=== PATIENT | male | born 1950 | race American Indian/Alaskan Native ===

== ENCOUNTER 2021-04-12 07:04 | Inpatient (IN) | payer MEDICARE ==
[2021-04-12] MEDS ORDERED: EPINEPHrine 1 MG/10 ML SYRINGE IV ONE (07:05)
[2021-04-12] MEDS ORDERED: DOPamine/D5W 800 MG/250 ML 0 MG/0 ML BAG IV ONE (07:11)
[2021-04-12] MEDS ORDERED: NORepinephrine/NS 4 MG-250 ML 4 MG/250 ML BAG IV ONE ×2 (07:28→17:07)
[2021-04-12] MEDS: NORepinephrine/NS 4 MG-250 ML 4 MG/250 ML BAG IV SCH ×2 (07:40→10:23)
[2021-04-12] MEDS ORDERED: DOPamine/D5W 800 MG/250 ML 800 MG/250 ML BAG IV ONE (07:56)
[2021-04-12] MEDS ORDERED: SODIUM CHLORIDE 0.9% 1000 ML 1,000 ML IV ONE ×2 (07:57)
[2021-04-12] MEDS ORDERED: EPINEPHrine 1 MG/1 ML 8 MG in SODIUM CHLORIDE 0.9% 250ML 242 ML IV SCH (08:00)
--- NOTE | 2021-04-12 08:09 | Emergency Department Report ---
HPI - General Chief Complaint: Cardiac Arrest/CPR Time Seen by Provider: 04/12/21 07:47 - HPI HPI: Room 21 The patient is a 71-year-old male present with chief complaint of cardiac arrest. Per EMS the patient called 911 complaining of shortness of breath. EMS arrived on scene at approximately 06:28. They had to make a forced entry which delayed them approximately 9 minutes. EMS states they found the patient prone on his bed with his telephone next to him in asystole. ACLS protocols were initiated and the patient was intubated using a Allen airway by EMS. Patient received sodium bicarb, calcium chloride 4 rounds epinephrine prior to arrival. Upon arrival to the ED the patient was found in PEA. ACLS protocols were continued. The Allen airway was removed and the patient was intubated by myself using a 8.0 ET tube. There was eventual return of spontaneous circulation. Patient had several more brief arrests in the ED but there was eventual return of spontaneous circulation. ED Past Medical Hx - Past Medical History Previous Medical History?: No - Surgical History Past Surgical History?: No - Family History Family history: no significant - Social History Smoking Status: Unknown if ever smoked ED Review of Systems ROS: Stated complaint: CARDIAC ARREST Other details as noted in HPI Comment: Unobtainable due to pts medical conditions Physical Exam - Physical Exam Vital Signs: Vital Signs 04/12/21 07:27 Temperature 92.5 F L Pulse Rate 0 L Respiratory 0 L Rate Blood Pressure 0/0 O2 Sat by Pulse 0 L Oximetry Vital Signs 04/12/21 04/12/21 04/12/21 07:05 07:17 07:27 Temperature 92.5 F L Pulse Rate 71 0 L Respiratory 0 L 0 L Rate Blood Pressure 44/27 0/0 O2 Sat by Pulse 99 0 L Oximetry 04/12/21 04/12/21 04/12/21 07:30 07:45 08:00 Temperature Pulse Rate 108 H 89 79 Respiratory 12 17 22 Rate Blood Pressure 76/49 48/30 78/42 O2 Sat by Pulse 71 L Oximetry 04/12/21 04/12/21 04/12/21 08:02 08:15 08:31 Temperature Pulse Rate 93 H 112 H 98 H Respiratory 22 30 H Rate Blood Pressure 94/56 94/56 96/46 O2 Sat by Pulse 86 86 93 Oximetry 04/12/21 04/12/2121 08:45 09:01 09:15 Temperature Pulse Rate 112 H 113 H 111 H Respiratory 30 H 30 H 22 Rate Blood Pressure 87/43 95/47 84/58 O2 Sat by Pulse 95 97 Oximetry 04/12/21 09:17 Temperature 94.2 F L Pulse Rate Respiratory Rate Blood Pressure O2 Sat by Pulse Oximetry Physical Exam: GENERAL: The patient is well-developed well-nourished male lying on stretcher receiving chest compressions from EMS and being bagged via Allen airway. [] HEENT: Normocephalic. Atraumatic. NECK: Trachea midline CHEST/LUNGS: No respirations. Breath sounds equal bilaterally with bagging after intubation by myself with ET tube HEART/CARDIOVASCULAR: Initially no heart sounds with PEA on the monitor. ABDOMEN: Abdomen is soft, nontender. Patient has normal bowel sounds. There is no abdominal distention. SKIN: There is no rash. There is no edema. There is no diaphoresis. NEURO: GCS 3 T MUSCULOSKELETAL: There is no evidence of acute injury. ED Course Vital Signs 04/12/21 07:27 Temperature 92.5 F L Pulse Rate 0 L Respiratory 0 L Rate Blood Pressure 0/0 O2 Sat by Pulse 0 L Oximetry - Central Line Placement Right Femoral Consent Obtained: emergent situation Time Out Performed: No Patient Placed on Monitor/Pulse Ox: Yes Prep: mask, gown, gloves Central Line Prep: Chlorhexidine scrub Ultrasound Used for Placement: No (Femoral, easy landmarks) Central Line Lumen Inserted: triple Reason for Insertion: High Alert Medication Bloods Obtained for Lab: No Central Line Position: good blood return Dressing Applied: Tegaderm Patient Tolerated Procedure: well Complications: arterial puncture/cannula (Initial 2 attempts resulted in dark red pulsatile blood return. Introducer was removed and pressure was held. Successful venous cannulation on\ third attempt) - Intubation Time Out Performed: No Sedative: none Laryngoscope: Eugenie Size: 3 ET Tube Size: 8 Tube Secured Depth (cm): 24 Tube Secured Location: lips Tube Placement Confirmation: visualized tube passing t, equal breath sounds bilat, no breath sounds over epi, confirmation by capnometr Patient Tolerated Procedure: well Intubation Complications: none ED Medical Decision Making - Lab Data Result diagrams: 04/12/21 08:29 04/12/21 08:29 Laboratory Tests 04/12/21 04/12/21 04/12/21 07:50 08:03 08:29 WBC 12.6 H RBC 4.01 Hgb 12.6 Hct 41.5 MCV 104 H MCH 32 MCHC 30 L RDW 16.3 H Plt Count 55 L D-Dimer ABG pH 6.753 L POC ABG pCO2 69.6 H POC ABG pO2 112.1 H POC ABG HCO3 9.5 ABG O2 Saturation 90.5 POC ABG Base Excess -26.5 ABG Hemoglobin 13.3 ABG Oxyhemoglobin 90.0 L ABG Methemoglobin 0.4 ABG Sodium 156.7 H ABG Potassium 4.0 ABG Chloride 113.0 H ABG Glucose 138 H Carboxyhemoglobin 0.1 L FiO2 % 100.0 Sodium Potassium Chloride Carbon Dioxide Anion Gap BUN Creatinine Estimated GFR BUN/Creatinine Ratio Glucose POC Glucose 118 H Lactic Acid Calcium Total Bilirubin Alkaline Phosphatase Total Creatine Kinase CK-MB (CK-2) CK-MB (CK-2) Rel Index Troponin T C-Reactive Protein NT-Pro-B Natriuret Pep Total Protein Albumin Albumin/Globulin Ratio Arterial Blood Glucose 138 H 04/12/21 04/12/21 04/12/21 08:29 08:29 08:29 WBC RBC Hgb Hct MCV MCH MCHC RDW Plt Count D-Dimer > 19957 H ABG pH POC ABG pCO2 POC ABG pO2 POC ABG HCO3 ABG O2 Saturation POC ABG Base Excess ABG Hemoglobin ABG Oxyhemoglobin ABG Methemoglobin ABG Sodium ABG Potassium ABG Chloride ABG Glucose Carboxyhemoglobin FiO2 % Sodium 163 H* Potassium 4.3 Chloride 113.4 H Carbon Dioxide 11 L Anion Gap 43 BUN 32 H Creatinine 2.0 H Estimated GFR 40 BUN/Creatinine Ratio 16 Glucose 152 H POC Glucose Lactic Acid 20.10 H* Calcium 11.2 H Total Bilirubin 1.00 Alkaline Phosphatase 92 Total Creatine Kinase 492 H CK-MB (CK-2) 12.5 H CK-MB (CK-2) Rel Index 2.5 Troponin T 0.209 H* C-Reactive Protein 8.60 H NT-Pro-B Natriuret Pep Total Protein 5.6 L Albumin 2.7 L Albumin/Globulin Ratio 0.9 Arterial Blood Glucose 04/12/21 04/12/21 08:29 08:29 WBC RBC Hgb Hct MCV MCH MCHC RDW Plt Count D-Dimer ABG pH POC ABG pCO2 POC ABG pO2 POC ABG HCO3 ABG O2 Saturation POC ABG Base Excess ABG Hemoglobin ABG Oxyhemoglobin ABG Methemoglobin ABG Sodium ABG Potassium ABG Chloride ABG Glucose Carboxyhemoglobin FiO2 % Sodium Potassium Chloride Carbon Dioxide Anion Gap BUN Creatinine Estimated GFR BUN/Creatinine Ratio Glucose 151 H POC Glucose Lactic Acid Calcium Total Bilirubin Alkaline Phosphatase Total Creatine Kinase CK-MB (CK-2) CK-MB (CK-2) Rel Index Troponin T C-Reactive Protein 8.70 H NT-Pro-B Natriuret Pep 260.4 Total Protein Albumin Albumin/Globulin Ratio Arterial Blood Glucose - EKG Data -: EKG Interpreted by Me EKG shows normal: sinus rhythm Rate: normal - EKG Data When compared to previous EKG there are: previous EKG unavailable Interpretation: other (No evidence of STEMI ) - Radiology Data Radiology results: report reviewed (Chest x-ray), image reviewed (Chest x-ray) interpreted by me: Chest [id number] patchy infiltrates greatest on the left. No pneumothorax. [facility] [address] [place] [address] XRay Report Signed Patient: DESHAUN CASTANON MR#: [id number] : 1950 Acct:[id number] Age/Sex: 71 / M ADM Date: 04/12/21 Loc: ED Attending Dr: Ordering Physician: STEPAN TALBOT MD Date of Service: 04/12/21 Procedure(s): XR chest 1V ap Accession Number(s): [id number] cc: STEPAN TALBOT MD Fluoro Time In Minutes: XR chest 1V ap INDICATION / CLINICAL INFORMATION: Status post cardiac arrest, suspected Covid. COMPARISON: None available. FINDINGS: SUPPORT DEVICES: Endotracheal tube projects 1.6 cm above the arianna. Nasogastric tube tip and side- port project in the stomach. HEART /PULMONARY VASCULATURE: No significant abnormality. LUNGS / PLEURA: Bilateral pulmonary airspace disease, greatest in the left. No sizable pleural effusion. No evidence pneumothorax. ADDITIONAL FINDINGS: No significant additional findings. IMPRESSION: 1. Bilateral pulmonary airspace disease, greater on the left, may reflect pneumonia and/or pulmonary edema. 2. Endotracheal tube projects 1.6 cm above the arianna. Consider retraction by approximately 2 cm for more optimal placement. 3. Gastric placement of nasogastric tube. Signer Name: Mary Velasco MD Signed: 04/12/2021 8:23 AM Workstation Name: [id number] Transcribed By: MARIAH Dictated By: MARY VELASCO MD Electronically Authenticated By: MARY VELASCO MD Signed Date/Time: 04/12/21822 DD/ 0 TD/TT: Print Cancel - Differential Diagnosis COVID-19, electrolyte imbalance, ACS, dysrhythmia, Critical Care Time: Yes Critical care time in (mins) excluding proc time.: 30 Critical care attestation.: If time is entered above; I have spent that time in minutes in the direct care of this critically ill patient, excluding procedure time. ED Disposition Clinical Impression: Cardiac arrest, Suspected COVID-19 virus infection, Bilateral pneumonia, Sepsis, Renal insufficiency, Metabolic acidosis Disposition: DC-09 OP ADMIT IP TO THIS HOSP Is pt being admited?: Yes Does the pt Need Aspirin: Yes Condition: Critical Instructions: Bacterial Pneumonia (ED) Referrals: PRIMARY CARE, [Primary Care Provider] - 3-5 Days Time of Disposition: 09:30 (Hospitalist paged (Dr. Lancaster))
[2021-04-12] MEDS ORDERED: AZITHROMYCIN/NS 500 MG/250 ML 500 MG/250 ML BAG IV ONE (08:15)
[2021-04-12] MEDS ORDERED: cefTRIAXone/NS 1 GM/50 ML 1 GM/50 ML BAG IV ONE (08:15)
--- NOTE | 2021-04-12 08:28 | XRay Report ---
XR chest 1V ap INDICATION / CLINICAL INFORMATION: Status post cardiac arrest, suspected Covid. COMPARISON: None available. FINDINGS: SUPPORT DEVICES: Endotracheal tube projects 1.6 cm above the arianna. Nasogastric tube tip and side-po rt project in the stomach. HEART /PULMONARY VASCULATURE: No significant abnormality. LUNGS / PLEURA: Bilateral pulmonary airspace disease, greatest in the left. No sizable pleural effusi on. No evidence pneumothorax. ADDITIONAL FINDINGS: No significant additional findings. IMPRESSION: 1. Bilateral pulmonary airspace disease, greater on the left, may reflect pneumonia and/or pulmonary edema. 2. Endotracheal tube projects 1.6 cm above the arianna. Consider retraction by approximately 2 cm for more optimal placement. 3. Gastric placement of nasogastric tube. Signer Name: Noel Velasco MD Signed: 04/12/2021 8:23 AM Workstation Name: [id number]
[2021-04-12] MEDS ORDERED: SODIUM BICARB 8.4% 50 MEQ/50 ML SYRINGE IV ONE ×2 (08:29→17:20)
[2021-04-12 08:56] LABS: Hematocrit 41.5 % (35.5-45.6); Hemoglobin 12.6 gm/dl (11.8-15.2); Mean Corpuscular HGB Conc 30 % (32-34); Mean Corpuscular Volume 104 fl (84-94); Red Blood Count 4.01 M/mm3 (3.65-5.03); Red Cell Distribution Width 16.3 % (13.2-15.2)
[2021-04-12 08:57] LABS: Platelet Count 55 K/mm3 (140-440)
[2021-04-12 09:11] LABS: C-Reactive Protein 8.7 mg/dL (0.00-1.30)
[2021-04-12 09:12] LABS: Creatine Kinase MB 12.5 ng/mL (0.0-4.0)
[2021-04-12 09:15] LABS: Albumin 2.7 g/dL (3.9-5); C-Reactive Protein 8.6 mg/dL (0.00-1.30); Calcium 11.2 mg/dL (8.4-10.2)
[2021-04-12] MEDS ORDERED: dexAMETHasone 20 MG/5 ML VIAL IV ONE (09:51)
[2021-04-12] MEDS ORDERED: DEXTROSE 5% IN WATER 1,000 ML IV SCH (10:00)
--- NOTE | 2021-04-12 10:18 | History and Physical Report ---
History of Present Illness Date of examination: 04/12/21 Date of admission: 04/12/21 Chief complaint: s/p cardiac arrest History of present illness: The patient is a 71-year-old male present with chief complaint of cardiac arrest. Per EMS the patient called 911 complaining of shortness of breath. EMS arrived on scene at approximately 06:28. They had to make a forced entry which delayed them approximately 9 minutes. EMS states they found the patient prone on his bed with his telephone next to him in asystole. ACLS protocols were initiated and the patient was intubated using a Allen airway by EMS. Patient received sodium bicarb, calcium chloride 4 rounds epinephrine prior to arrival. Upon arrival to the ED the patient was found in PEA. ACLS protocols were continued. The Allen airway was removed and the patient was intubated by ER physician using a 8.0 ET tube. There was eventual return of spontaneous circulation. Patient had several more brief arrests in the ED but there was eventual return of spontaneous circulation. Past History Past Medical History: other (Unknown) Past Surgical History: Other (Unknown) Social history: other (Unable to obtain) Family history: other (Unknown) Medications and Allergies Allergies Allergy/AdvReac Type Severity Reaction Status Date / Time Unable to Assess Allergy Verified 04/12/21 07:24 Active Meds: Active Medications Epinephrine 8 mg/ Sodium (Chloride) 250 mls @ 0 mls/hr IV TITR SHAHBAZ Stop: 04/12/21 12:00 Last Admin: 04/12/21 07:51 Dose: 10 mls/hr Documented by: Dopamine HCl/Dextrose (Intropin Drip 800 Mg/D5w 250 Ml) 800 mg in 250 mls @ 2.905 mls/hr IV TITR ONE; Protocol Stop: 04/15/21 21:59 Norepinephrine (Levophed Drip 4 Mg/Ns 250 Ml) 4 mg in 250 mls @ 7.5 mls/hr IV TITR SHAHBAZ; Protocol Last Titration: 04/12/21 08:15 Dose: 30 mcg/min, 112.5 mls/hr Documented by: Dextrose (D5w) 1,000 mls @ 150 mls/hr IV DIRECT SHAHBAZ Review of Systems ROS unobtainable: due to mental status Exam - Constitutional Vitals: Temp Pulse Resp BP Pulse Ox 94.2 F L 111 H 22 84/58 97 04/12/21 09:17 04/12/21 09:15 04/12/21 09:15 04/12/21 09:15 04/12/21 09:15 HEART Score - HEART Score Troponin: Troponin T 0.209 ng/mL (0.00-0.029) H* 04/12/21 08:29 Results - Labs CBC & Chem 7: 04/12/21 16:33 04/12/21 16:33 Labs: Abnormal lab results 04/12/21 04/12/21 04/12/21 Range/Units 07:50 08:03 08:29 WBC 12.6 H (4.5-11.0) K/mm3 MCV 104 H (84-94) fl MCHC 30 L (32-34) % RDW 16.3 H (13.2-15.2) % Plt Count 55 L (140-440) K/mm3 D-Dimer (0-234) ng/mlDDU ABG pH 6.753 L (7.320-7.450) POC ABG pCO2 69.6 H (32.0-48.0) mmHg POC ABG pO2 112.1 H (83-108) mmHg ABG Oxyhemoglobin 90.0 L (94-98) ABG Sodium 156.7 H (136.0-145.0) mmol/L ABG Chloride 113.0 H (98-107) mmol/L ABG Glucose 138 H (65-95) mg/dL Carboxyhemoglobin 0.1 L (0.5-1.5) Sodium (137-145) mmol/L Chloride (98-107) mmol/L Carbon Dioxide (22-30) mmol/L BUN (9-20) mg/dL Creatinine (0.8-1.3) mg/dL Glucose (75-100) mg/dL POC Glucose 118 H (70-105) mg/dL Lactic Acid (0.7-2.0) mmol/L Calcium (8.4-10.2) mg/dL AST (5-40) units/L ALT (7-56) units/L Lactate Dehydrogenase (91-180) units/L Total Creatine Kinase (55-170) units/L CK-MB (CK-2) (0.0-4.0) ng/mL Troponin T (0.00-0.029) ng/mL C-Reactive Protein (0.00-1.30) mg/dL Total Protein (6.3-8.2) g/dL Albumin (3.9-5) g/dL Arterial Blood Glucose 138 H (65-95) mg/dL 04/12/21 04/12/21 04/12/21 Range/Units 08:29 08:29 08:29 WBC (4.5-11.0) K/mm3 MCV (84-94) fl MCHC (32-34) % RDW (13.2-15.2) % Plt Count (140-440) K/mm3 D-Dimer > 06285 H (0-234) ng/mlDDU ABG pH (7.320-7.450) POC ABG pCO2 (32.0-48.0) mmHg POC ABG pO2 (83-108) mmHg ABG Oxyhemoglobin (94-98) ABG Sodium (136.0-145.0) mmol/L ABG Chloride (98-107) mmol/L ABG Glucose (65-95) mg/dL Carboxyhemoglobin (0.5-1.5) Sodium 163 H* (137-145) mmol/L Chloride 113.4 H (98-107) mmol/L Carbon Dioxide 11 L (22-30) mmol/L BUN 32 H (9-20) mg/dL Creatinine 2.0 H (0.8-1.3) mg/dL Glucose 152 H (75-100) mg/dL POC Glucose (70-105) mg/dL Lactic Acid 20.10 H* (0.7-2.0) mmol/L Calcium 11.2 H (8.4-10.2) mg/dL AST 4481 H (5-40) units/L ALT 3349 H (7-56) units/L Lactate Dehydrogenase 7346 H (91-180) units/L Total Creatine Kinase 492 H (55-170) units/L CK-MB (CK-2) 12.5 H (0.0-4.0) ng/mL Troponin T 0.209 H* (0.00-0.029) ng/mL C-Reactive Protein 8.60 H (0.00-1.30) mg/dL Total Protein 5.6 L (6.3-8.2) g/dL Albumin 2.7 L (3.9-5) g/dL Arterial Blood Glucose (65-95) mg/dL 04/12/21 Range/Units 08:29 WBC (4.5-11.0) K/mm3 MCV (84-94) fl MCHC (32-34) % RDW (13.2-15.2) % Plt Count (140-440) K/mm3 D-Dimer (0-234) ng/mlDDU ABG pH (7.320-7.450) POC ABG pCO2 (32.0-48.0) mmHg POC ABG pO2 (83-108) mmHg ABG Oxyhemoglobin (94-98) ABG Sodium (136.0-145.0) mmol/L ABG Chloride (98-107) mmol/L ABG Glucose (65-95) mg/dL Carboxyhemoglobin (0.5-1.5) Sodium (137-145) mmol/L Chloride (98-107) mmol/L Carbon Dioxide (22-30) mmol/L BUN (9-20) mg/dL Creatinine (0.8-1.3) mg/dL Glucose 151 H (75-100) mg/dL POC Glucose (70-105) mg/dL Lactic Acid (0.7-2.0) mmol/L Calcium (8.4-10.2) mg/dL AST (5-40) units/L ALT (7-56) units/L Lactate Dehydrogenase 7544 H (91-180) units/L Total Creatine Kinase (55-170) units/L CK-MB (CK-2) (0.0-4.0) ng/mL Troponin T (0.00-0.029) ng/mL C-Reactive Protein 8.70 H (0.00-1.30) mg/dL Total Protein (6.3-8.2) g/dL Albumin (3.9-5) g/dL Arterial Blood Glucose (65-95) mg/dL Assessment and Plan Status post cardiac arrest Acute hypoxic respiratory failure Acute metabolic encephalopathy Possible anoxic brain injury RAY likely ATN Severe hypernatremia Covid 19 PUI Elevated d-dimer lactic acidosis Elevated troponin Elevated LFT Severe shock Possible sepsis
--- NOTE | 2021-04-12 10:57 | Consultation ---
History of Present Illness - Reason for Consult Consult date: 04/12/21 acute renal failure, hypernatremia - History of Present Illness The patient is a 71 YO male iwth unknown medical history who presented to [facility] ED 8/5 s/p cardiac arrest. Per EMS the patient called 911 complaining of shortness of breath. EMS arrived on scene at approximately 06:28. They had to make a forced entry which delayed them approximately 9 minutes. EMS states they found the patient prone on his bed with his telephone next to him in asystole. ACLS protocol were initiated and the patient was intubated using a Allen airway by EMS. Patient received sodium bicarb, calcium chloride 4 rounds epinephrine prior to arrival. Upon arrival to the ED the patient was found in PEA. ACLS protocol were continued. The Allen airway was removed and the patient was intubated by ED physician. There was eventual return of spontaneous circulation. Patient had several more brief arrests in the ED but there was eventual return of spontaneous circulation. CXR showed bilateral airspace disease. Multiple lab abnormalities noted. Nephrology was consulted for management of RAY and hypernatremia. Medications and Allergies Allergies Allergy/AdvReac Type Severity Reaction Status Date / Time Unable to Assess Allergy Verified 04/12/21 07:24 Active Meds: Active Medications Epinephrine 8 mg/ Sodium (Chloride) 250 mls @ 0 mls/hr IV TITR SHAHBAZ Stop: 04/12/21 12:00 Last Admin: 04/12/21 07:51 Dose: 10 mls/hr Documented by: Dopamine HCl/Dextrose (Intropin Drip 800 Mg/D5w 250 Ml) 800 mg in 250 mls @ 2.905 mls/hr IV TITR ONE; Protocol Stop: 04/15/21 21:59 Last Admin: 04/12/21 07:10 Dose: 2 mcg/kg/min, 2.905 mls/hr Documented by: Norepinephrine (Levophed Drip 4 Mg/Ns 250 Ml) 4 mg in 250 mls @ 7.5 mls/hr IV TITR SHAHBAZ; Protocol Last Admin: 04/12/21 10:23 Dose: 30 mcg/min, 112.5 mls/hr Documented by: Dextrose (D5w) 1,000 mls @ 150 mls/hr IV DIRECT SHAHBAZ Last Admin: 04/12/21 10:22 Dose: 150 mls/hr Documented by: Methylprednisolone Sodium Succinate (Methylprednisolone Sod Succinate 40 Mg/1 Ml Inj) 40 mg IV Q8H [facility] Review of Systems ROS unobtainable: due to mental status Exam - Vital Signs Vital signs: Vital Signs Resp Pulse Ox 0 L 99 04/12/21 07:05 04/12/21 07:05 Results - Lab Results 04/12/21 16:33 04/12/21 16:33 Most recent lab results ABG pH 6.753 (7.320-7.450) L 04/12/21 08:03 ABG O2 Saturation 90.5 (0-100) 04/12/21 08:03 Calcium 11.2 mg/dL (8.4-10.2) H 04/12/21 08:29 Assessment and Plan 1. Acute kidney injury: RAY in the setting of severe Covid infection and Cardiac arrest. Patient is also hypotensive. Urine studies and Renal US ordered. Monitor renal function. Baseline renal function is unknown. Creatinine level increasing. Renal prognosis is guarded. Avoid nephrotoxic agents. Meds dosage based on GFR. 2. FEN: Hypernatremia, IV D5W, monitor. IV D5W stopped due to the Sodium trend. Anion-gap metabolic acidosis, 2/2 lactic acidosis, monitor. Hyperkalemia, Insulin and Sod bicarbonate ordered, monitor. Monitor lytes and volume status. 3. S/p Cardiac arrest // Elevated Troponin: ? 2/2 Covid infection. Post arrest EKG showed A.fib with RBBB. Trend Troponin. Followed by Cards. Echo pending. 4. Acute respiratory failure with hypoxemia: 2/2 Covid PNA. Currently on vent, wean as tolerated. 5. Profound Shock: On Levophed, Epinephrine and Dopamine at the time of eval. Wean as tolerated. Monitor. 6. Covid PNA: ID consulted. 7. Elevated ALT & AST: Trend. 8. Elevated bl glucose: ?DM. Monitor. 9. Thrombocytopenia: Monitor. 10. Rhabdomyolysis: Trend. Subjective: Patient was seen and examined at the bedside. Examination: General appearance: well-developed, appears stated age, intubated on vent HEENT: atraumatic, no icterus, pupils not reacting Neck: trachea midline Respiratory: MV sounds Heart: S1S2, regular, tachycardia, no murmur Abdomen: soft, NT Integumentary: no obvious rash Neurologic: not responding Ext: edema : Lanza catheter
--- NOTE | 2021-04-12 11:17 | Electrocardiograph Report ---
[facility] Test Date: 2021-04-12 Test Time: 07:20:36 Pat Name: DESHAUN CASTANON Department: Room: [place] [address] Gender: M Film Or Videotape Editor: RINA : 1950 Requested By: STEPAN TALBOT Order Number: [id number] Reading MD: Shankar Del Rio Measurements Intervals Jackson Rate: 105 P: [place]: QRS: 76 QRSD: 130 T: -59 QT: 390 QTc: 517 Interpretive Statements Atrial fibrillation Right bundle branch block Nonspecific repol abnormality, lateral leads No previous ECG available for comparison Electronically Signed On 04-12-2021 11:16:55 EDT by Shankar Del Rio
[2021-04-12] MEDS ORDERED: methylPREDNISolone Sod Succinate 40 MG/1 ML INJ IV SCH (11:30)
[2021-04-12 11:46] LABS: Total Cells Counted 100
[2021-04-12 11:48] LABS: Platelet Estimate Consistent w Auto; RBC Morphology Normal
[2021-04-12] MEDS ORDERED: NORepinephrine/NS 8 MG-250 ML 8 MG/250 ML INFUS..BTL IV SCH (12:00)
--- NOTE | 2021-04-12 15:29 | Consultation ---
History of Present Illness Consult date: 04/12/21 Requesting physician: FILI BARBOSA Consult reason: cardiac arrest History of present illness: Patient is a 71 y/o male who presented to the ED for cardiac arrest. Patient is intubated at this time and history obtained through patients chart. Patient called 911 complaining of shortness of breath. EMS reports that they had to make a forced entry which delayed around 9 minutes patient was found lying in his bed asystole patient ACLS protocols were used and patient was intubated. Patient received 4 rounds of epi prior to arrival in hospital at the ED patient was found in PEA ACLS protocols were continued eventual return of spontaneous circulation in the ED patient continued to have several more brief cardiac arrest with eventual ROSC. WE are consulted for cardiac arrest with unknown downtime. Past History Past Medical History: other (unable to obtain) Past Surgical History: Other (Unable to obtain) Family history: other (Unable to obtain) Medications and Allergies Allergies Allergy/AdvReac Type Severity Reaction Status Date / Time Unable to Assess Allergy Verified 04/12/21 07:24 Active Meds: Active Medications Dopamine HCl/Dextrose (Intropin Drip 800 Mg/D5w 250 Ml) 800 mg in 250 mls @ 2.905 mls/hr IV TITR ONE; Protocol Stop: 04/15/21 21:59 Last Titration: 04/12/21 08:00 Dose: 20 mcg/kg/min, 29.046 mls/hr Documented by: Dextrose (D5w) 1,000 mls @ 150 mls/hr IV DIRECT SHAHBAZ Last Admin: 04/12/21 10:22 Dose: 150 mls/hr Documented by: NORepinephrine/NS 8 MG-250 ML (Norepinephrine/Ns 8 Mg-250 Ml (Double Conc)) 8 mg in 250 mls @ 3.75 mls/hr IV TITRATE SHAHBAZ; Protocol Last Titration: 04/12/21 12:21 Dose: 30 mcg/min, 56.25 mls/hr Documented by: Methylprednisolone Sodium Succinate (Methylprednisolone Sod Succinate 40 Mg/1 Ml Inj) 40 mg IV Q8H SHAHBAZ Last Admin: 04/12/21 11:54 Dose: 40 mg Documented by: Review of Systems ROS unobtainable: due to endotracheal tube Physical Examination Last Vital Signs Temp 94.2 F L 04/12/21 09:17 Pulse 117 H 04/12/21 14:01 Resp 31 H 04/12/21 14:01 BP 111/76 04/12/21 14:01 Pulse Ox 90 04/12/21 14:01 General appearance: other (Intubated) HEENT: Positive: PERRL Neck: Positive: trachea midline Cardiac: Positive: irregularly irregular Lungs: Positive: Ventilated Respirations Neuro: Positive: Other (Unable assessed patient is intubated ) Abdomen: Positive: Soft Skin: Negative: Rash, Suspicious Lesions, Ulceration Extremities: Present: upper extr. pulses, lower extr. pulses, edema Results 04/12/21 08:29 04/12/21 08:29 Cardiac Enzymes 04/12/21 04/12/21 Range/Units 08:29 08:29 AST 4481 H (5-40) units/L Lactate Dehydrogenase 7346 H 7544 H (91-180) units/L CK-MB (CK-2) 12.5 H (0.0-4.0) ng/mL CBC 04/12/21 Range/Units 08:29 WBC 12.6 H (4.5-11.0) K/mm3 RBC 4.01 (3.65-5.03) M/mm3 Hgb 12.6 (11.8-15.2) gm/dl Hct 41.5 (35.5-45.6) % Plt Count 55 L (140-440) K/mm3 Comprehensive Metabolic Panel 04/12/21 04/12/21 Range/Units 08:29 08:29 Sodium 163 H* (137-145) mmol/L Potassium 4.3 (3.6-5.0) mmol/L Chloride 113.4 H (98-107) mmol/L Carbon Dioxide 11 L (22-30) mmol/L BUN 32 H (9-20) mg/dL Creatinine 2.0 H (0.8-1.3) mg/dL Glucose 152 H 151 H (75-100) mg/dL Calcium 11.2 H (8.4-10.2) mg/dL AST 4481 H (5-40) units/L ALT 3349 H (7-56) units/L Alkaline Phosphatase 92 (35-129) units/L Total Protein 5.6 L (6.3-8.2) g/dL Albumin 2.7 L (3.9-5) g/dL - Imaging and Cardiology Echo: pending EKG: report reviewed, image reviewed EKG interpretations - Telemetry EKG Rhythm: Atrial Fibrillation - EKG Supraventricular dysrhythmia: atrial fibrillation AV and intraventricular conduction: right bundle branch block Assessment and Plan Status post cardiac arrest Elevated troponin * Post arrest 12 lead EKG shows Afib 105 with RBBB. Continue to monitor on tele. * Recommend neuro consultation. Pending neuro consult recommend Heparin gtt for afib * Troponins elevated 0.2. Trend Cardiac ezymes * Echo pending Acute hypoxic respiratory failure Sepsis COVID-19 * Patient test positive for COVID-19 * Currently intubated RAY * Renal is following DVT Prophylaxis * Manage per primary team Patient seen in conjunction with Dr. Gale Maza who agrees with this plan of care. Will continue to follow - Patient Problems (1) Bilateral pneumonia Current Visit: Yes Status: Acute (2) Cardiac arrest Current Visit: Yes Status: Acute (3) Metabolic acidosis Current Visit: Yes Status: Acute (4) Sepsis Current Visit: Yes Status: Acute (5) Suspected COVID-19 virus infection Current Visit: Yes Status: Acute
[2021-04-12] MEDS ORDERED: HEPARIN 10,000 UNITS/10 ML VIAL IV PRN (16:01)
--- NOTE | 2021-04-12 16:36 | Consultation ---
History of Present Illness Consult date: 04/12/21 Requesting physician: FILI BARBOSA Reason for consult: other (Cardiac Arrest with ROSC) History of present illness: PULMONARY/CCM CONSULT NOTE (Full dictation # [id number]) Please see dictated notes for full details Past History Past Medical History: other (unable to obtain) Past Surgical History: Other (Unable to obtain) Family history: other (Unable to obtain) Medications and Allergies Allergies Allergy/AdvReac Type Severity Reaction Status Date / Time Unable to Assess Allergy Verified 04/12/21 07:24 Active Meds: Active Medications Heparin Sodium (Porcine) (Heparin 10,000 Units/10 Ml Vial) 3,100 unit 40 unit/kg (3100 unit) IV Q6H PRN PRN Reason: Anti-Xa Assay < 0.1 units/ml Dopamine HCl/Dextrose (Intropin Drip 800 Mg/D5w 250 Ml) 800 mg in 250 mls @ 2.905 mls/hr IV TITR ONE; Protocol Stop: 04/15/21 21:59 Last Titration: 04/12/21 08:00 Dose: 20 mcg/kg/min, 29.046 mls/hr Documented by: Dextrose (D5w) 1,000 mls @ 150 mls/hr IV DIRECT SHAHBAZ Last Admin: 04/12/21 10:22 Dose: 150 mls/hr Documented by: NORepinephrine/NS 8 MG-250 ML (Norepinephrine/Ns 8 Mg-250 Ml (Double Conc)) 8 mg in 250 mls @ 3.75 mls/hr IV TITRATE SHAHBAZ; Protocol Last Titration: 04/12/21 12:21 Dose: 30 mcg/min, 56.25 mls/hr Documented by: Heparin Sodium/Sodium Chloride (Heparin/ 0.45% Nacl-25,000 Unit/500 Ml) 25,000 unit in 500 mls @ 23 mls/hr IV TITR SHAHBAZ; Protocol Methylprednisolone Sodium Succinate (Methylprednisolone Sod Succinate 40 Mg/1 Ml Inj) 40 mg IV Q8H SHAHBAZ Last Admin: 04/12/21 11:54 Dose: 40 mg Documented by: Physical Examination Vital signs: Vital Signs Resp Pulse Ox 0 L 99 04/12/21 07:05 04/12/21 07:05 Results - Laboratory Findings CBC and BMP: 04/12/21 16:33 04/12/21 16:33 ABG ABG pH 6.753 (7.320-7.450) L 04/12/21 08:03 POC ABG pCO2 69.6 mmHg (32.0-48.0) H 04/12/21 08:03 POC ABG pO2 112.1 mmHg (83-108) H 04/12/21 08:03 POC ABG HCO3 9.5 04/12/21 08:03 ABG O2 Saturation 90.5 (0-100) 04/12/21 08:03 PT/INR, D-dimer D-Dimer > 56654 ng/mlDDU (0-234) H 04/12/21 08:29 Abnormal lab findings: Abnormal Labs 04/12/21 04/12/21 04/12/21 07:50 08:03 08:29 WBC 12.6 H MCV 104 H MCHC 30 L RDW 16.3 H Plt Count 55 L Seg Neuts % (Manual) 71.0 H Seg Neutrophils # Man 8.9 H D-Dimer ABG pH 6.753 L POC ABG pCO2 69.6 H POC ABG pO2 112.1 H ABG Oxyhemoglobin 90.0 L ABG Sodium 156.7 H ABG Chloride 113.0 H ABG Glucose 138 H Carboxyhemoglobin 0.1 L Sodium Chloride Carbon Dioxide BUN Creatinine Glucose POC Glucose 118 H Lactic Acid Calcium Ferritin AST ALT Lactate Dehydrogenase Total Creatine Kinase CK-MB (CK-2) Troponin T C-Reactive Protein Total Protein Albumin Arterial Blood Glucose 138 H Coronavirus (PCR) 04/12/21 04/12/21 04/12/21 08:29 08:29 08:29 WBC MCV MCHC RDW Plt Count Seg Neuts % (Manual) Seg Neutrophils # Man D-Dimer > 32548 H ABG pH POC ABG pCO2 POC ABG pO2 ABG Oxyhemoglobin ABG Sodium ABG Chloride ABG Glucose Carboxyhemoglobin Sodium 163 H* Chloride 113.4 H Carbon Dioxide 11 L BUN 32 H Creatinine 2.0 H Glucose 152 H POC Glucose Lactic Acid 20.10 H* Calcium 11.2 H Ferritin AST 4481 H ALT 3349 H Lactate Dehydrogenase 7346 H Total Creatine Kinase 492 H CK-MB (CK-2) 12.5 H Troponin T 0.209 H* C-Reactive Protein 8.60 H Total Protein 5.6 L Albumin 2.7 L Arterial Blood Glucose Coronavirus (PCR) 04/12/21 04/12/21 04/12/21 08:29 08:29 Unknown WBC MCV MCHC RDW Plt Count Seg Neuts % (Manual) Seg Neutrophils # Man D-Dimer ABG pH POC ABG pCO2 POC ABG pO2 ABG Oxyhemoglobin ABG Sodium ABG Chloride ABG Glucose Carboxyhemoglobin Sodium Chloride Carbon Dioxide BUN Creatinine Glucose 151 H POC Glucose Lactic Acid Calcium Ferritin 76460.0 H AST ALT Lactate Dehydrogenase 7544 H Total Creatine Kinase CK-MB (CK-2) Troponin T C-Reactive Protein 8.70 H Total Protein Albumin Arterial Blood Glucose Coronavirus (PCR) Positive A
[2021-04-12] MEDS ORDERED: HEPARIN/ 0.45% NACL DRIP 25,000 UNIT/500 ML BAG IV SCH (17:00)
[2021-04-12 17:08] LABS: Calcium 8.4 mg/dL (8.4-10.2)
[2021-04-12 17:10] LABS: Hematocrit 42.4 % (35.5-45.6); Hemoglobin 13.3 gm/dl (11.8-15.2)
[2021-04-12] MEDS ORDERED: INSULIN REGULAR, HUMAN 100 UNITS/1 ML IV ONE (17:20)
[2021-04-12] MEDS ORDERED: MINERAL OIL/PETROLATUM, WHITE OPHTH OINT 3.5 GM OU PRN (17:25)
[2021-04-12] MEDS ORDERED: fentaNYL 100 MCG/2 ML INJ IV PRN (17:25)
[2021-04-12] MEDS ORDERED: LIP THERAPY VASELINE TP PRN (17:25)
[2021-04-12 17:35] VITALS: BP 132/107
--- NOTE | 2021-04-12 17:35 | Event Note ---
Date: 04/12/21 CODE BLUE called. Patient treated" with ACLS protocol with eventual return of perfusing cardiac rhythm. Neurologic exam patient found to have pupils are fixed and dilated. Suspect anoxic brain injury. Advanced care planning conducted. Pending family care conference. 60 minutes dedicated to bedside care as well as patient care conference.
[2021-04-12] MEDS ORDERED: fentaNYL DRIP Premix 2,000 MCG/100 ML BAG IV SCH (18:00)
[2021-04-12] MEDS ORDERED: INSULIN REGULAR, HUMAN 100 UNITS/1 ML SUB-Q SCH (18:00)
--- NOTE | 2021-04-12 18:43 | Event Note ---
CODE BLUE called. Patient treated" with ACLS protocol without return of perfusing cardiac rhythm. Neurologic exam patient found to have pupils are fixed and dilated. Cardiac exam revealed no cardiac activity and absent heartbeat, pulmonary exam revealed absent lung sounds. school bus monitor revealed asystole. Patient pronounced at 1751 hrs. Patient family notified upon arrival to the hospital. Advanced care planning conducted. Additional 35 minutes dedicated to discussing patient care.
--- NOTE | 2021-04-12 18:45 | Death Note ---
Note Date of : 04/12/21 Time of : 17:51 - Preliminary Cause of (problem) (1) Acute hypoxemic respiratory failure Preliminary cause of (2) Ischemic cardiomyopathy Preliminary cause of (3) Coronavirus infection Preliminary cause of (4) Bilateral pneumonia Preliminary cause of
[2021-04-12] MEDS ORDERED: SENNOSIDES/DOCUSATE SODIUM 8.6/50 MG TAB FEEDTUBE SCH (22:00)
[2021-04-12] MEDS ORDERED: FAMOTIDINE 20 MG/2 ML INJ IV SCH (22:00)
--- NOTE | 2021-04-13 05:13 | Consultation ---
DATE OF CONSULTATION: 04/12/2021 PULMONARY CRITICAL CARE CONSULT NOTE DATE OF CONSULTATION: 04/12/2021 CONSULTING PHYSICIAN: Dr. Pineda. REASON FOR CONSULTATION: Cardiac arrest with return of spontaneous circulation. CHIEF COMPLAINT AND HISTORY OF PRESENT ILLNESS: The patient is a now 71-year-old male with past medical history unknown who presented with a chief complaint of cardiac arrest. According to the Emergency Medical Services, he had called 911 complaining of shortness of breath. They arrived at the scene approximately 6:28 a.m., they have to make a forced entry, which delayed them about 9 minutes, they found the patient prone on his bed in asystole. ACLS protocols were initiated. He was intubated with a Allen airway, received bicarbonate, calcium chloride, 4 rounds of epinephrine. In the ED, he was found in PEA arrest. ACLS protocols were continued. He was intubated with a #8 ET tube and it was eventually return of spontaneous circulation. He had a few more brief arrests in the ED and then his blood pressure stabilized and the patient stabilized. We are asked to assist with management. When I stopped by to see him, he was resting in bed. He was really not responsive. He was not on any sedation at the time, was not responding even to a sternal rub. I do not have any history of vomiting or overt aspiration. The above, really is as much of the history of presentation as I have. PAST MEDICAL HISTORY: Unknown. PAST SURGICAL HISTORY: Unknown. MEDICATIONS: He was on at the time I stopped by to see him, according to the medication administration record included the following; dopamine drip was going at 20 mcg per kilogram per minute, heparin was going per ACS protocol, I believe. Solu-Medrol 40 mg IV q. 8 hours. ALLERGIES: Unknown. DIET: Well built gentleman, acute weight loss or gain history is unknown. FAMILY AND SOCIAL HISTORY: Unknown. REVIEW OF SYSTEMS: Unobtainable secondary to the patient's medical and mental condition. Since he has been in the Emergency Room, no gross hematochezia or melena, no gross hematuria, no hematemesis, no bloody tracheal secretions, no witnessed seizures. Review of systems otherwise unobtainable or as in the body of history above. PHYSICAL EXAMINATION: VITAL SIGNS: On presentation, temperature 92.5 degrees Fahrenheit axillary, pulse was 71, respiratory rate, he was muñoz bagged 12 essentially. Blood pressure ____, O2 sats were 99%, inspired oxygen concentration at that time was not recorded; however, when I stopped by to see him, O2 sats were 99% that was on, I believe, assist control mode of ventilation, tidal volume 450, rate of 30, PEEP of 6 and 100% FiO2. GENERAL: Elderly looking male. Normocephalic, atraumatic, resting in bed without significant patient-ventilator dyssynchrony. HEAD, EYES, EARS, NOSE, AND THROAT: Anicteric. No conjunctival erythema. Oropharynx was moist. ET tube was taped at the lips around 24 cm. NECK: No gross jugular venous distention, no thyromegaly. Grossly, there were no palpable lymph nodes in the supraclavicular or submandibular lymph node chains. There was some bleeding into the right side of his mouth, oropharyngeal secretions, I should say. LUNGS: Auscultation of both lung hernández, bilateral rhonchi, no wheezing. HEART: Sounds 1 and 2 are heard at the time of my evaluation, regular rate and rhythm without overt rubs or murmurs. ABDOMEN: Soft, flat, bowel sounds are positive, nontender, no palpable hepatosplenomegaly. EXTREMITIES: Without overt digital clubbing or cyanosis, no pedal edema. Pedal pulses are 2+ bilaterally. He has a right groin central venous catheter. NEUROLOGIC: Pupils were fixed, dilated around 8 mm. Extraocular muscle movements could not be assessed. He did not have any spontaneous movement. SKIN: Poor turgor; however, without overt cellulitis or rash in the areas I examined. Please see the wound care nurses' notes for full description of his skin. PSYCHIATRIC: Mood and affect could not be assessed. He was obtunded. LABORATORY DATA: From my review are as follows: White cell count 12,600, hemoglobin 12.6, hematocrit 41.5, platelet count was 55 at presentation. It is up to 88 now. No band neutrophils on the manual differential. D-dimer greater than 10,000. Venous blood gas at presentation showed a pH of 6.75, pCO2 of 70, pO2 of 112 on 100% FiO2 and I believe the above-mentioned vent settings. Serum sodium was 163, potassium 4.3, chloride 113, bicarbonate was 11, BUN 32, creatinine 2.0, glucose 151. Lactic acid level was 20.1, down to 11.4. Ferritin ____, AST 4481, ALT 3349. LDH 7544. Troponin 0.209. CRP 8.7. Procalcitonin 0.26. Coronavirus PCR was positive. Two sets of blood cultures, no growth to date. A chest x-ray was done which shows an ET tube in good position, probably can retract it 1 or 2 cm, borderline cardiomegaly, bilateral pulmonary infiltrates. No pneumothorax. ASSESSMENT: 1. Cardiac arrest with return of spontaneous circulation. 2. Acute hypoxemic respiratory failure. 3. Bilateral pneumonia. 4. COVID-19 infection. 5. Severe lactic acidosis. 6. Leukocytosis. 7. Elevated serum transaminases to include LDH, ferritin. 8. Elevated serum transaminases, likely secondary to shock liver. 9. Shock liver. 10. Non-ST elevation myocardial infarction. 11. Hypernatremia. 12. Acute kidney injury. 13. Oropharyngeal dysphagia. PLAN: Prognosis is very poor. 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 Nonetheless, he does have return of spontaneous circulation. For now, we will continue to wean vasopressors to keep mean arterial pressures greater than or equal to about ____ mmHg. Acute coronary syndrome workup is ongoing. We will continue the IV heparin for now. I have ordered a stat repeat arterial blood gas. In the meantime, we will continue to hyperventilate him. Adjustments will be made once we have the repeat of the gas. Oxygen will be weaned to keep sats greater than or equal to about 92%. Ventilator-associated pneumonia bundle has been introduced. Continue volume resuscitation. Get urine electrolytes. Nephrology consultation will be of benefit, Cardiology consultation also, ultimately Neurology consultation will continue. I will put him on empiric community-acquired pneumonia therapy with Rocephin and Zithromax, I should say, I will continue that. He will also be kept on dexamethasone. I will stop the Solu-Medrol and put him on dexamethasone for COVID-19. He is not a candidate for remdesivir. Infectious disease consultation will also be of benefit. Enteral nutrition will be the feeding modality of choice. He will be placed on GI prophylaxis, especially with him on mechanical ventilation, on full anticoagulation. Flu and pneumonia vaccination will be addressed per protocol. He will be kept in airborne and contact isolation. Thank you very much for the consult, Dr. Pineda. We will follow along and make further recommendations as picture progresses/becomes clearer. Prognosis is very, very poor in this gentleman. At this time, I spent about 35-40 minutes of critical care time without overlap and excluding any procedural time that may be necessary. TID: [id number] RECEIPT: [id number] BRI/FRANCESCA/CARLOS
== END 2021-04-12 18:44 | DRG 871 ==
LOC: ED 07:04 → CC1 10:04
PROVIDERS: ADMIT Internal Medicine; ATTEND Internal Medicine
PROC: 5A1935Z Respiratory Ventilation, Less than 24 Consecutive Hours (ICD-10-PCS; principal; 2021-04-12)
PROC: 0BH17EZ Insertion of Endotracheal Airway into Trachea, Via Natural or Artificial Opening (ICD-10-PCS; 2021-04-12)
PROC: 06HM33Z Insertion of Infusion Device into Right Femoral Vein, Percutaneous Approach (ICD-10-PCS; 2021-04-12)
PROC: 4A033R1 Measurement of Arterial Saturation, Peripheral, Percutaneous Approach (ICD-10-PCS; 2021-04-12)
DX: A41.9 Sepsis, unspecified organism (principal); U07.1 COVID-19; J12.82 Pneumonia due to coronavirus disease 2019; J96.01 Acute respiratory failure with hypoxia; R65.21 Severe sepsis with septic shock; G93.41 Metabolic encephalopathy; E87.0 Hyperosmolality and hypernatremia; M62.82 Rhabdomyolysis; N17.9 Acute kidney failure, unspecified; I46.9 Cardiac arrest, cause unspecified; I25.5 Ischemic cardiomyopathy; R79.89 Other specified abnormal findings of blood chemistry; D69.6 Thrombocytopenia, unspecified; E87.5 Hyperkalemia; I48.91 Unspecified atrial fibrillation
CPT/HCPCS: 36415; 71045; 80048; 80053; 82140; 82550; 82553; 82728; 82805; 82947; 82962; 83615; 83880; 84145; 84484; 85007; 85014; 85018; 85025; 85049; 85379; 86140; 87040; 93005; 94002; G0378; J0171; J0456; J0696; J1100; J1265; J2920; J7050; J7070; U0003